=== PATIENT | male | born 1965 | race Caucasian/White ===

== ENCOUNTER → 2020-02-11 | Outpatient (CLI) | payer BC ==
--- NOTE | 2020-02-11 10:41 | XR ---
EXAMINATION TYPE: XR chest 2V DATE OF EXAM: 02/11/2020 COMPARISON: None INDICATION: Chest pain TECHNIQUE: Frontal and lateral views of the chest are obtained. FINDINGS: The heart size is normal. The pulmonary vasculature is normal. The lungs are clear. IMPRESSION: 1. No acute pulmonary process.
--- NOTE | 2020-02-11 16:56 | ECHOS ---
STRESS ECHOCARDIOGRAM LUMASON: INDICATIONS: Chest pain, shortness of breath. MEDICATIONS: Amlodipine, besylate, Valsartan/hydrochlorothiazide, BASELINE HEART RATE: 68 BASELINE BLOOD PRESSURE: 120/54 MAXIMUM HEART RATE: 140 MAXIMUM BLOOD PRESSURE: 167/90 85% MPHR: 141 100% MPHR: 164/83 METS: 9.7 MAXIMUM STAGE REACHED: 3 TOTAL EXERCISE TIME: 8:00 CLINICAL INFORMATION: Baseline rhythm is sinus mechanism, rate of 68, normal axis and intervals. Early repolarization changes. Baseline blood pressure 120/54 mmHg. Patient exercised on Skinny protocol for 8 minutes, reaching a peak rate 140 beats per minute, which is equal to 87% of maximum predicted heart rate. Peak blood pressure 164/83 mmHg. Test was terminated secondary to fatigue. There was no chest pain. Electrocardiograph monitoring revealed no evidence of diagnostic ischemic ST deviation. FINDINGS: Baseline echocardiogram revealed normal wall thickening and motion. At peak exercise, there was normal wall motion augmentation with no hypokinesis or dyskinesis. CONCLUSION: 1. Average exercise tolerance with normal EKG response to exercise. 2. Normal stress echocardiogram with no evidence of stress-induced ischemia. MMODL / IJN: [id number] / MTDD
== END | disposition home or self-care (01) ==
LOC: RADNMMAIN 09:07
PROVIDERS: ATTEND Family Medicine
DX: R07.9 Chest pain, unspecified (principal); R06.02 Shortness of breath
CPT/HCPCS: 71046; 93351